=== PATIENT | male | born 1935 | race Caucasian/White ===

== ENCOUNTER 2020-03-21 11:01 | Emergency (ER) | payer OTHER, BC ==
[2020-03-21 11:08] VITALS: TEMP 98.7; BMI 26.6
[2020-03-21] MEDS ORDERED: SODIUM CHLORIDE 1,000 ML IV SCH (11:15)
--- NOTE | 2020-03-21 11:27 | PDOC ---
History of Present Illness <Grazyna Zarco - Last Filed: 03/21/20 12:38> - History of Present Illness Initial Comments: 03/21/20 13:20 85 M with hx of dementia, stroke, hernia repair presented to the ED via EMS with stroke like symptoms. Per EMS, his neighbor last saw him well was 2 days ago. He lives alone, and his neighbor checked on him often. Per his neighbor, he was found on the floor this morning because he hasn't left the house to see his neighbor. He has a power of Dental Hygienist who currently at [place], but able to provide some history. According to her, he was contacted yesterday around 17:00 . He didn't have slurred speech and he was deemed fine. At the arrival, he was soiled in urine and vomit, had blood on his arms. He had significant aphasia, and complete left facial drool. His speech was slurred. He was able to move his upper extremities, but his lower extremities ROM was limited. His Initial NIH stroke scale was around 13. Cannot perform ROS due to limitation from his stroke. PMH: dementia PSH: hernia surgery Med: home meds SS: lives alone, <Zeeshan Connell - Last Filed: 03/21/20 13:31> - General Chief Complaint: CVA/TIA Stated Complaint: POSSIBLE STROKE/FALL Time Seen by Provider: 03/21/20 11:09 NIH Stroke Scale - Last Known Well Date/Time & Onset Date Last Known Well: 03/20/20 Time Last Known Well: 17:30 - Initial Evaluation Level of consciousness: Alert Ask patient the month and their age: Answers one correctly Ask patient to open & close eyes; make fist and let go: Obeys one correctly Best gaze (horizontal eye movement): Partial gaze palsy Visual field testing: Partial hemianopia Facial paresis (Show teeth/raise eyebrows/close eyes tight): Complete paralysis of one or both sides (Upper and lower face) Motor Function: Left Arm: Normal Motor Function: Right Arm: Normal (extends arm 90 (or 45) degrees for 10 seconds without drift Motor Function: Left Leg: Normal (extends leg 30 degrees for 5 seconds without drift) Motor Function: Right Leg: Normal (extends leg 30 degrees for 5 seconds without drift) Limb Ataxia: Present in one limb Sensory(Use pinprick test arms,legs,trunk,face/side to side): Mild to moderate decrease in sensation Best language (Describe picture, name items, read sentences): Severe aphasia Dysarthria (read several words): Near unintelligible or unable to speak Extinction and Inattention: No abnormality - Total Score NIH Stroke Scale Score: 13 <Zeeshan Connell - Last Filed: 03/21/20 13:31> tPA Exclusion checklist 3-4.5h - Time Elapsed Date last known well: 03/20/20 Time last known well: 17:30 Elaspsed time: Day(s) and 19 Hour(s) and 8 Minutes <Catherine Zarcobeth - Last Filed: 03/21/20 12:38> - Time Elapsed Date last known well: 03/20/20 Time last known well: 17:30 Elaspsed time: Day(s) and 19 Hour(s) and 50 Minutes - Thrombolytic Therapy Candidate Is patient eligible for thrombolytic therapy: No - Exclusion Criteria 3-4.5 hr SBP greater than 185 or DBP greater than 110mmHg despite tx: No Recent IC/spinal surgery,head trauma or stroke<3mos.: No Hx IC hemorrhage, IC neoplasm, AV malformation or aneurysm: No Active internal bleeding: No Blding diathesis(low plt ct, inc PTT,INR>1.7 or use of NOAC): No Symptoms suggest subarachnoid hemorrhage: No CT demonstrates multilobar infarct(>1/3 cerebral hemiphere): No Arterial puncture at noncompressible site in previous 7 days: No Blood glucose concentration less than 50mg/dL (2.7mmol/L): No - Relative Exclusion Criteria 3-4.5 hr Care team unable to determine eligibility: No IV/IA thrombolysis/thrombectomy @ another hosp prior arrival: No Life expectancy <1 yr or severe co-morbid illness: No : No Patient/family refused: No Stroke severity too mild (non-disabling): No Recent acute MO (w/in previous 3 months): No Seizure at onset with postictal residual neuro impairments: No Major surgery or serious trauma w/in previous 14 days: No Recent GI or hemorrhage (w/in previous 21 days): No - Add'l Relative Exclusion 3-4.5 hr Age > 80: Yes Hx of both diabetes AND prior ischemic stroke: Yes Taking an oral anticoagulant regardless of INR: No Severe Stroke (NIHSS >25): No - Ineligibility reason(s) Reasons No tPA given: Outside of window - delayed arrival, See reason(s) noted above <Zeeshan Connell - Last Filed: 03/21/20 13:31> Past History <Grazyna Zarco - Last Filed: 03/21/20 12:38> - Travel History Traveled outside of the country in the last 30 days: No - Medical History Anemia: No Asthma: No Cancer: No Cardiac Disorders: Yes (MO, STENTS) CVA: Yes (TIA) COPD: No CHF: No Dementia: No Diabetes: No GI Disorders: Yes (ULCER) Disorders: No HTN: Yes Hypercholesterolemia: Yes Liver Disease: No Seizures: No Thyroid Disease: No - Surgical History Abdominal Surgery: Yes (HERNIA REPAIRED) Appendectomy: Yes Cardiac Surgery: Yes (LOOP RECORDER) Cholecystectomy: No Lung Surgery: No Neurologic Surgery: No Orthopedic Surgery: No - Psycho-Social/Smoking History Smoking Status: No Smoking History: Smoker current status UNK Have you smoked in the past 12 months: No Number of Cigarettes Smoked Daily: 0 Information on smoking cessation initiated: No - Substance Abuse Hx (Audit-C & DAST Scrn) How often the patient has a drink containing alcohol: Monthly or less How often the patient has six or more drinks on one occasion: Less than monthly Score: In Men: 4 or > Positive; In Women: 3 or > Positive: 2 Screen Result (Pos requires Nsg. Audit-10AR): Negative In the last yr the pt used illegal drug/Rx for NonMed reason: No Score: Yes response is considered Positive: 0 Screen Result (Positive result requires Nsg. DAST-10): Negative <Zeeshan Connell - Last Filed: 03/21/20 13:31> - Medical History Allergies/Adverse Reactions: Allergies Allergy/AdvReac Type Severity Reaction Status Date / Time No Known Drug Allergies Allergy Verified 03/21/20 11:08 Home Medications: Ambulatory Orders Amlodipine Besylate [Norvasc -] 5 mg PO DAILY 03/21/20 Apixaban [Eliquis] 5 mg PO BID 03/21/20 Atorvastatin Ca [Lipitor] 10 mg PO HS 03/21/20 Docusate Sodium [Colace] 200 mg PO DAILY 03/21/20 Furosemide [Lasix] 40 mg PO DAILY 03/21/20 Losartan Potassium 100 mg PO DAILY 03/21/20 Metoprolol Tartrate [Lopressor] 50 mg PO BID 03/21/20 Tamsulosin HCl [Flomax] 0.4 mg PO DAILY 03/21/20 *Physical Exam - Vital Signs Last Vital Signs Temp Pulse Resp BP Pulse Ox 98.7 F 97 H 18 161/72 95 03/21/20 11:06 03/21/20 11:06 03/21/20 11:06 03/21/20 11:06 03/21/20 11:27 <Grazyna Zarco - Last Filed: 03/21/20 12:38> - Vital Signs Last Vital Signs Temp Pulse Resp BP Pulse Ox 98.7 F 97 H 18 161/72 99 03/21/20 11:06 03/21/20 11:06 03/21/20 11:06 03/21/20 11:06 03/21/20 11:06 - Physical Exam General Appearance: Yes: Apparent Distress, Disheveled, Moderate Distress HEENT: positive: EOMI, MULU, Normal ENT Inspection Respiratory/Chest: positive: Lungs Clear, Normal Breath Sounds Cardiovascular: positive: Regular Rhythm, Regular Rate Gastrointestinal/Abdominal: positive: Normal Bowel Sounds, Soft Musculoskeletal: positive: Normal Inspection Extremity: positive: Normal Capillary Refill Integumentary: positive: Normal Color, Dry <Zeeshan Connell - Last Filed: 03/21/20 13:31> ED Treatment Course - LABORATORY CBC & Chemistry Diagram: 03/21/20 11:15 03/21/20 11:15 - ADDITIONAL ORDERS Additional order review: Laboratory Results 03/21/20 03/21/20 03/21/20 11:15 11:15 11:15 PT with INR INR PTT (Actin FS) Sodium 132 L Chloride 106 Carbon Dioxide 25 BUN 38.2 H Creatinine 2.5 H Est GFR (CKD-EPI)AfAm 26.34 Est GFR (CKD-EPI)NonAf 22.73 POC Glucometer Random Glucose 113 H Calcium 8.9 Total Bilirubin 0.8 Alkaline Phosphatase 90 Creatine Kinase 975 H Troponin I 0.40 H Total Protein 10.4 H Albumin 3.5 Triglycerides 73 Cholesterol 127 Total LDL Cholesterol 70 HDL Cholesterol 47 Blood Type Cancelled Antibody Screen Cancelled 03/21/20 03/21/20 11:15 11:07 PT with INR 14.90 H INR 1.26 H PTT (Actin FS) 40.0 H Sodium Chloride Carbon Dioxide BUN Creatinine Est GFR (CKD-EPI)AfAm Est GFR (CKD-EPI)NonAf POC Glucometer 122 Random Glucose Calcium Total Bilirubin Alkaline Phosphatase Creatine Kinase Troponin I Total Protein Albumin Triglycerides Cholesterol Total LDL Cholesterol HDL Cholesterol Blood Type Antibody Screen 03/21/20 03/21/20 11:15 11:07 RBC 4.19 MCV 88.9 MCHC 33.2 RDW 16.1 H MPV 8.3 Neutrophils % 81.4 Lymphocytes % 9.9 Monocytes % 8.1 Eosinophils % 0.0 Basophils % 0.6 D POC Glucometer 122 <Grazyna Zarco - Last Filed: 03/21/20 12:38> - LABORATORY CBC & Chemistry Diagram: 03/21/20 11:15 03/21/20 11:15 - ADDITIONAL ORDERS Additional order review: Laboratory Results 03/21/20 11:07 POC Glucometer 122 03/21/20 11:07 POC Glucometer 122 <Zeeshan Connell - Last Filed: 03/21/20 13:31> Discharge <Grazyna Zarco - Last Filed: 03/21/20 12:38> - Discharge Information Problems reviewed: Yes - Admission No - Transfer to Acute Care Facility Receiving [facility]: [facility] Accepting Physician:: maura <Zeeshan Connell - Last Filed: 03/21/20 13:31> - Discharge Information Clinical Impression/Diagnosis: Altered mental status Qualifiers: Altered mental status type: unspecified Qualified Code(s): R41.82 - Altered mental status, unspecified Cerebrovascular accident (CVA) Qualifiers: CVA mechanism: occlusion Precerebral and cerebral artery: middle cerebral artery Laterality of affected vessel: right Qualified Code(s): I63.511 - Cerebral infarction due to unspecified occlusion or stenosis of right middle cerebral artery Condition: Guarded Disposition: TRANSFER ACUTE CARE/OTHER HOSP - Follow up/Referral Referrals: Sotero Simons MD [Primary Care Provider] - - Patient Discharge Instructions Patient Printed Discharge Instructions: DI for Stroke-Ischemic
[2020-03-21 11:33] LABS: BASO % 0.6 % (0-2.0); HEMATOCRIT 37.2 % (35.4-49); HEMOGLOBIN 12.3 GM/dL (11.7-16.9); LYMPH % 9.9 % (8-40); MCH 29.5 pg (25.7-33.7); MCHC 33.2 g/dl (32.0-35.9); MEAN CELL VOLUME 88.9 fl (80-96); MEAN PLT VOLUME 8.3 fl (7.5-11.1); MONO % 8.1 % (3.8-10.2); NEUT % 81.4 % (42.8-82.8); PLATELET COUNT 271 K/MM3 (134-434); RBC 4.19 M/mm3 (4.00-5.60); RDW 16.1 % (11.9-15.9); WHITE BLOOD COUNT 10.3 K/mm3 (4.0-10.0)
[2020-03-21 11:45] LABS: INR 1.26 (0.83-1.09); PROTHROMBIN TIME (PATIENT) 14.9 SEC (9.7-13.0)
--- NOTE | 2020-03-21 11:51 | PDOC ---
Documentation entered by Yary Farah SCRIBE, acting as scribe for Grazyna Zarco MD. Grazyna Zarco MD: This documentation has been prepared by the scribe, Yary Farah SCRIBE, under my direction and personally reviewed by me in its entirety. I confirm that the documentation accurately reflects all work, treatment, procedures, and medical decision making performed by me. Attending Attestation - Resident Resident Name: Zeeshan Connell - ED Attending Attestation I have performed the following: I have examined & evaluated the patient, The case was reviewed & discussed with the resident, I agree w/resident's findings & plan, Exceptions are as noted - HPI HPI: 03/21/20 11:23 Patient is an 85 year old male with a significant past medical history of dementia, right lower abdominal hernia repair, and abdominal surgery for peritonitis, who presents to the ED, BIBA, with CVA - last known well 2 days ago. Per EMS, the patients neighbor regularly checks up on the patient and found him on the floor passed out next to his bed (unknown down time). Allergies: NKDA - Physicial Exam PE: GENERAL: Awake, alert, in no acute distress. HEAD: No signs of trauma EYES: PERRLA, EOMI, sclera anicteric, conjunctiva clear ENT: Auricles normal inspection, hearing grossly normal, nares patent, oropharynx clear without exudates. Moist mucosa. Face soiled with dry vomit around his mouth. NECK: Normal ROM, supple, no lymphadenopathy, JVD, or masses LUNGS: Breath sounds equal, clear to auscultation bilaterally. No wheezes, and no crackles HEART: Regular rate and rhythm, normal S1 and S2, no murmurs, rubs or gallops ABDOMEN: Soft, nontender, normoactive bowel sounds. No guarding, no rebound. No masses EXTREMITIES: Normal range of motion, no edema. No clubbing or cyanosis. No cords, erythema, or tenderness NEUROLOGICAL: +L facial droop. Speech is slurred. Limited motor exam of lower extremities, having difficulty following commands. SKIN: Warm, dry, normal turgor, no rashes or lesions noted. - Medical Decision Making 03/21/20 11:50 Pt presents with AMS, neighbor called EMS, as he did not see him. Stroke/AMS workup ordered. Await results, will plan for admission. 03/21/20 12:10 As per radiology report, patient with large MCA CVA, unknown time of onset. Will discuss with neurology. 03/21/20 12:25 Now able to confirm that patient was at baseline approximately 5:30 pm last night. Currently discussing poss transfer with [facility]. 03/21/20 12:36 Pt accepted to [facility] for interventional neurosurg. eval. NIH Stroke Scale - Last Known Well Date/Time & Onset Date Last Known Well: 03/20/20 Time Last Known Well: 17:30 - Initial Evaluation Level of consciousness: Alert Ask patient the month and their age: Answers one correctly Ask patient to open & close eyes; make fist and let go: Obeys one correctly Best gaze (horizontal eye movement): Partial gaze palsy Visual field testing: Partial hemianopia Facial paresis (Show teeth/raise eyebrows/close eyes tight): Complete paralysis of one or both sides (Upper and lower face) Motor Function: Left Arm: Normal Motor Function: Right Arm: Normal (extends arm 90 (or 45) degrees for 10 seconds without drift Motor Function: Left Leg: Normal (extends leg 30 degrees for 5 seconds without drift) Motor Function: Right Leg: Normal (extends leg 30 degrees for 5 seconds without drift) Limb Ataxia: Present in one limb Sensory(Use pinprick test arms,legs,trunk,face/side to side): Mild to moderate decrease in sensation Best language (Describe picture, name items, read sentences): Severe aphasia Dysarthria (read several words): Near unintelligible or unable to speak Extinction and Inattention: No abnormality - Total Score NIH Stroke Scale Score: 13 Discharge - Discharge Information Problems reviewed: Yes Clinical Impression/Diagnosis: Altered mental status Qualifiers: Altered mental status type: unspecified Qualified Code(s): R41.82 - Altered mental status, unspecified Cerebrovascular accident (CVA) Qualifiers: CVA mechanism: occlusion Precerebral and cerebral artery: middle cerebral artery Laterality of affected vessel: right Qualified Code(s): I63.511 - Cerebral infarction due to unspecified occlusion or stenosis of right middle cerebral artery Condition: Guarded - Follow up/Referral Referrals: Sotero Simons MD [Primary Care Provider] - - Patient Discharge Instructions - Post Discharge Activity
[2020-03-21 12:10] LABS: CHOLESTEROL 127 mg/dL (50-200); HDL CHOLESTEROL 47 mg/dL (40-60); LDL CHOLESTEROL (ONLY SJRH) 70 mg/dL (5-100); TRIGLYCERIDES 73 mg/dL (0-150)
[2020-03-21 12:12] LABS: ALBUMIN 3.5 g/dl (3.4-5.0); ALK PHOS 90 U/L (45-117); BILIRUBIN,TOTAL 0.8 mg/dL (0.2-1); BLOOD UREA NITROGEN 38.2 mg/dL (7-18); CALCIUM 8.9 mg/dL (8.5-10.1); CHLORIDE 106 mmol/L (98-107); CO2 25 mmol/L (21-32); CREATININE 2.5 mg/dL (0.55-1.3); GLUCOSE,RANDOM 113 mg/dL (74-106); SODIUM 132 mmol/L (136-145); TOT PROT 10.4 g/dl (6.4-8.2)
[2020-03-21] MEDS ORDERED: ASPIRIN 300 MG SUPP.RECT PR ONE (12:14)
--- NOTE | 2020-03-21 12:25 | PDOC ---
*Physical Exam - Vital Signs Last Vital Signs Temp Pulse Resp BP Pulse Ox 98.7 F 97 H 18 161/72 95 03/21/20 11:06 03/21/20 11:06 03/21/20 11:06 03/21/20 11:06 03/21/20 11:27 ED Treatment Course - LABORATORY CBC & Chemistry Diagram: 03/21/20 11:15 03/21/20 11:15 - ADDITIONAL ORDERS Additional order review: Laboratory Results 03/21/20 03/21/20 03/21/20 11:15 11:15 11:15 PT with INR INR PTT (Actin FS) Sodium 132 L Chloride 106 Carbon Dioxide 25 BUN 38.2 H Creatinine 2.5 H Est GFR (CKD-EPI)AfAm 26.34 Est GFR (CKD-EPI)NonAf 22.73 POC Glucometer Random Glucose 113 H Calcium 8.9 Total Bilirubin 0.8 Alkaline Phosphatase 90 Creatine Kinase 975 H Troponin I 0.40 H Total Protein 10.4 H Albumin 3.5 Triglycerides 73 Cholesterol 127 Total LDL Cholesterol 70 HDL Cholesterol 47 Blood Type Cancelled Antibody Screen Cancelled 03/21/20 03/21/20 11:15 11:07 PT with INR 14.90 H INR 1.26 H PTT (Actin FS) 40.0 H Sodium Chloride Carbon Dioxide BUN Creatinine Est GFR (CKD-EPI)AfAm Est GFR (CKD-EPI)NonAf POC Glucometer 122 Random Glucose Calcium Total Bilirubin Alkaline Phosphatase Creatine Kinase Troponin I Total Protein Albumin Triglycerides Cholesterol Total LDL Cholesterol HDL Cholesterol Blood Type Antibody Screen 03/21/20 03/21/20 11:15 11:07 RBC 4.19 MCV 88.9 MCHC 33.2 RDW 16.1 H MPV 8.3 Neutrophils % 81.4 Lymphocytes % 9.9 Monocytes % 8.1 Eosinophils % 0.0 Basophils % 0.6 D POC Glucometer 122 - RADIOLOGY Radiology Studies Ordered: Category Date Time Status CERVICAL SPINE CT W/O CONTR [CT] Stat CT Scan 03/21/20 11:36 Completed Medical Decision Making - Medical Decision Making Power employee benefits attorney/health care proxy. Zan calling ER. - Spoke with patient yesterday at 5:30 and patient was asymptomatic. - ZAN NUMBER: [phone] LAST KNOWN WELL TIME 530 PM YESTERDAY. Patient presented with a stroke and radiologist called Attending physician to say there is a large M1 occlusion on the dry CT I spoke with Dr. Mcelroy regarding the patient. Dr. Mcelroy recommended transferring patient as patient is still in the 24 hour window. Initiating consult to Neuro-operator at [facility] to discuss if they want to accept the patient Initiating transfer over to [facility] 03/21/20 12:18 - Ildi from the transfer center - Requests face sheet - [phone] - TAMI stroke fellow from [facility]. Gave report to Tami who said he will confirm with his attending to make sure this transfer is acceptable and then call us back 03/21/20 12:32 Accepting Attending - Charline Discharge - Discharge Information Problems reviewed: Yes Clinical Impression/Diagnosis: Altered mental status Qualifiers: Altered mental status type: unspecified Qualified Code(s): R41.82 - Altered mental status, unspecified Cerebrovascular accident (CVA) Qualifiers: CVA mechanism: occlusion Precerebral and cerebral artery: middle cerebral artery Laterality of affected vessel: right Qualified Code(s): I63.511 - Cerebral infarction due to unspecified occlusion or stenosis of right middle cerebral artery Condition: Guarded Disposition: TRANSFER ACUTE CARE/OTHER HOSP - Follow up/Referral Referrals: Sotero Simons MD [Primary Care Provider] - - Patient Discharge Instructions Patient Printed Discharge Instructions: DI for Stroke-Ischemic - Post Discharge Activity
[2020-03-21] MEDS ORDERED: ASPIRIN 300 MG SUPP.RECT RC ONE (12:33)
[2020-03-21 12:51] VITALS: BP 164/86; PULSE 90
[2020-03-21 13:08] LABS: ANION GAP 2 MMOL/L (8-16); SGOT/AST 124 U/L (15-37); SGPT/ALT 58 U/L (13-61)
[2020-03-21 13:10] LABS: POTASSIUM > 10.0 mmol/L (3.5-5.1)
--- NOTE | 2020-03-22 10:15 | EKG ---
Test Reason : Blood Pressure : / mmHG Vent. Rate : 094 BPM Atrial Rate : 094 BPM P-R Int : 236 ms QRS Dur : 112 ms QT Int : 382 ms P-R-T Axes : 050 -23 107 degrees QTc Int : 477 ms SINUS RHYTHM WITH 1ST DEGREE A-V BLOCK POSSIBLE LEFT ATRIAL ENLARGEMENT LEFT VENTRICULAR HYPERTROPHY WITH REPOLARIZATION ABNORMALITY ABNORMAL ECG WHEN COMPARED WITH ECG OF 25-APR-2013 09:22, MI INTERVAL HAS INCREASED ST NO LONGER DEPRESSED IN LATERAL LEADS NONSPECIFIC T WAVE ABNORMALITY NO LONGER EVIDENT IN INFERIOR LEADS T WAVE AMPLITUDE HAS INCREASED IN ANTERIOR LEADS Confirmed by Osmar Oscar ([id number]) on 03/22/2020 10:14:49 AM Referred By: Confirmed By:Osmar Oscar
== END 2020-03-21 12:56 | disposition short-term general hospital (02) ==
LOC: JER 11:01
PROC: 3E0337Z Introduction of Electrolytic and Water Balance Substance into Peripheral Vein, Percutaneous Approach (ICD-10-PCS; principal; 2020-03-21)
DX: R41.82 Altered mental status, unspecified (principal); I63.511 Cerebral infarction due to unspecified occlusion or stenosis of right middle cerebral artery
CPT/HCPCS: 36415; 70450-TC; 72125-TC; 80053; 80061; 80307; 82550; 82553; 82962; 83721; 84484; 85025; 85610; 85730; 93005; 93010; 99285-25